=== PATIENT | female | born 1995 | race Caucasian/White ===

== ENCOUNTER 2019-12-03 21:51 | Observation (INO) | payer BC, SELFPAY ==
[2019-12-03 22:19] VITALS: BMI 27.2
--- NOTE | 2019-12-03 22:21 | OBADM ---
This patient, Yasemin Mota, admitted to the OB room OB Post 116 for observation. Patient/family oriented to hospital policies and general routines including ID bracelet, bed and alarms, visiting hours, pain management, procedures, bathroom and other care routines, personal items, smoking policy, room service/diet, and visiting hours. Patient/Family are encouraged to report perceived risks to care and to ask questions if they do not understand what they are told or what they should do.
[2019-12-03 22:59] VITALS: TEMP 36.4
[2019-12-03 23:00] VITALS: BP 113/65; PULSE 76
[2019-12-03] MEDS: LACTATED RINGERS 1,000 ML 125 ML IV CONT (23:19)
[2019-12-03 23:28] LABS: Basophils Percent Auto 0.2 % (0.2-1.2); Eosinophils Absolute Auto 0.1 K/mm3 (0-0.3); Eosinophils Percent Auto 0.7 % (0-4.4); Hematocrit 34.1 % (37.0-47.0); Hemoglobin 11.4 g/dL (12.0-15.0); Immature Granulocyte Absolute 0.03 K/mm3 (0.00-0.031); Immature Granulocyte Percent A 0.3 % (0-0.5); Lymphocytes Absolute Auto 2.28 K/mm3 (0.9-3.2); Lymphocytes Percent Auto 22.5 % (18.3-44.2); Mean Corpuscular HGB Conc 33.4 g/dl (32-36); Mean Corpuscular Volume 98.8 fl (80-100); Mean Platelet Volume 9.1 fl (7.4-10.4); Monocytes Absolute Auto 0.7 K/mm3 (0.1-0.6); Monocytes Percent Auto 7.1 % (2.6-8.5); Neutrophils Percent Auto 69.2 % (45.5-73.1); Platelet Count Result 177 k/mm3 (150-375); Red Blood Count 3.45 M/mm3 (4.2-5.4); Red Cell Distribution Width 13.4 % (11.5-14.5); White Blood Count 10.2 K/mm3 (4.5-10.0)
[2019-12-04] MEDS: LACTATED RINGERS 1,000 ML 125 ML IV CONT (00:17)
[2019-12-04 06:38] VITALS: BP 104/46; PULSE 69
[2019-12-04 09:10] LABS: Glucose 1 Hour PP 50gm Dose 115 mg/dL
[2019-12-04 10:13] LABS: HIV 1/2 Ab P24 Ag Result Negative (Negative)
--- NOTE | 2019-12-28 15:43 | P.PNOB_ITS ---
OB - Triage/Final Diagnosis Evaluation Laboratory results: Laboratory Tests 12/03/19 12/04/19 12/04/19 23:21 08:53 08:53 WBC 10.2 H RBC 3.45 L Hgb 11.4 L Hct 34.1 L MCV 98.8 MCH 33.0 MCHC 33.4 RDW 13.4 Plt Count 177 MPV 9.1 Immature Gran % (Auto) 0.3 Neut % (Auto) 69.2 Lymph % (Auto) 22.5 [place] % (Auto) 7.1 Eos % (Auto) 0.7 Baso % (Auto) 0.2 Lymph # (Auto) 2.28 [place] # (Auto) 0.7 H Eos # (Auto) 0.1 Baso # (Auto) 0.0 Abs Immat Gran (auto) 0.03 Absolute Neuts (auto) 7.0 H Absolute Nucleated RBC 0.0 Nucleated RBC % 0.0 Glucose 1 Hr 50 gm 115 HIV 1&2 Ab/P24 Ag 4thGn Negative Final Diagnosis (1) contractions: Code(s): O47.9 - False labor, unspecified Status: Acute
== END 2019-12-04 09:20 | disposition home or self-care (01) ==
PROVIDERS: Admitting Provider Obstetrics & Gynecology; Visit Provider Obstetrics & Gynecology
DX: O47.03 False labor before 37 completed weeks of gestation, third trimester (principal); Z3A.29 29 weeks gestation of pregnancy
CPT/HCPCS: 36415; 82947; 85025; 86703; 96360; 96361; G0378; G0379; G0432; J7120

== ENCOUNTER 2020-01-05 20:19 | Observation (INO) | payer BC, SELFPAY ==
[2020-01-05 20:41] VITALS: BP 121/73; PULSE 85
[2020-01-05 20:44] VITALS: BMI 28.1
--- NOTE | 2020-01-05 20:45 | OBADM ---
This patient, Yasemin Mota, admitted to the OB room OB Post 117 for observation. Patient/family oriented to hospital policies and general routines including ID bracelet, bed and alarms, visiting hours, pain management, procedures, bathroom and other care routines, personal items, smoking policy, room service/diet, and visiting hours. Patient/Family are encouraged to report perceived risks to care and to ask questions if they do not understand what they are told or what they should do.
[2020-01-05 20:58] VITALS: TEMP 36.9
[2020-01-05 21:01] VITALS: BP 116/76; PULSE 85
--- NOTE | 2020-01-10 08:49 | PM.OBTRLD ---
OB - Triage/Final Diagnosis Final Diagnosis (1) Blurry vision: Code(s): H53.8 - Other visual disturbances Status: Acute
== END 2020-01-05 21:15 | disposition home or self-care (01) ==
PROVIDERS: Admitting Provider Obstetrics & Gynecology; Visit Provider Obstetrics & Gynecology
DX: O99.89 Other specified diseases and conditions complicating pregnancy, childbirth and the puerperium (principal); H53.8 Other visual disturbances; Z3A.33 33 weeks gestation of pregnancy
CPT/HCPCS: G0378; G0379

== ENCOUNTER 2020-01-25 11:30 | Observation (INO) | payer BC, SELFPAY ==
--- NOTE | 2020-01-27 15:27 | PM.OBTRLD ---
OB - Triage/Final Diagnosis Final Diagnosis (1) False labor before 37 completed weeks of gestation: Qualifiers: Trimester: third trimester Qualified Code(s): O47.03 - False labor before 37 completed weeks of gestation, third trimester Code(s): O47.00 - False labor before 37 completed weeks of gestation, unspecified trimester Status: Acute Plan: heart tones were reassuring. Contractions spaced out and no cervical change was made. Patient was discharged home with PTL/bleeding/rupture precautions.
== END 2020-01-25 13:02 | disposition home or self-care (01) ==
PROVIDERS: Admitting Provider Obstetrics & Gynecology; Visit Provider Obstetrics & Gynecology
DX: O47.03 False labor before 37 completed weeks of gestation, third trimester (principal); Z3A.00 Weeks of gestation of pregnancy not specified
CPT/HCPCS: G0378; G0379

== ENCOUNTER 2020-02-08 07:16 | Inpatient (IN) | payer BC, SELFPAY ==
[2020-02-08] VITALS (198 sets, daily range): BP systolic 98–155; BP diastolic 48–138; PULSE 49–114; TEMP 36.4–37.3; O2SAT 85–100; BMI 29.2
[2020-02-08 08:54] LABS: Basophils Percent Auto 0.2 % (0.2-1.2); Eosinophils Absolute Auto 0.1 K/mm3 (0-0.3); Eosinophils Percent Auto 0.6 % (0-4.4); Hematocrit 38.3 % (37.0-47.0); Hemoglobin 13.3 g/dL (12.0-15.0); Immature Granulocyte Absolute 0.03 K/mm3 (0.00-0.031); Immature Granulocyte Percent A 0.3 % (0-0.5); Lymphocytes Percent Auto 16.6 % (18.3-44.2); Mean Corpuscular HGB Conc 34.7 g/dl (32-36); Mean Corpuscular Hemoglobin 33.4 pg (26-34); Mean Corpuscular Volume 96.2 fl (80-100); Mean Platelet Volume 9.6 fl (7.4-10.4); Monocytes Absolute Auto 0.5 K/mm3 (0.1-0.6); Monocytes Percent Auto 5.5 % (2.6-8.5); Neutrophils Absolute Auto 7.4 K/mm3 (1.3-6.7); Neutrophils Percent Auto 76.8 % (45.5-73.1); Platelet Count Result 197 k/mm3 (150-375); Red Blood Count 3.98 M/mm3 (4.2-5.4); Red Cell Distribution Width 13.3 % (11.5-14.5); White Blood Count 9.6 K/mm3 (4.5-10.0)
--- NOTE | 2020-02-08 09:13 | LDADM ---
This patient, Yasemin Mota, was admitted to Labor/Delivery/Recovery 106 on 02/08/20 at 07:16. Plans for labor, pain management and were discussed with patient. Patient/family oriented to hospital policies and general routines including ID bracelet, bed and alarms, visiting hours, pain management, procedures, bathroom and other care routines, personal items, smoking policy, room service/diet and guest tray routines, security routines, and visiting hours. Patient/Family are encouraged to report perceived risks to care and to ask questions if they do not understand what they are told or what they should do. See OBIX for further documentation.
[2020-02-08] MEDS: LACTATED RINGERS 1,000 ML 125 ML IV CONT ×3 (09:20→18:10)
[2020-02-08] MEDS: OXYTOCIN 30 UNITS/NS 500 ML 30 UNITS/500 ML BAG 6 UNITS IV CONT (09:21)
--- NOTE | 2020-02-08 10:36 | P.PNAN_ITS ---
Anes - Eval Pre Procedure Procedure: labor epidural Date/Time: 02/08/20 10:36 Surgeon: marce Preop Diagnosis: labor pain Pre Op Diagnosis: PREIN Patient Data Age: 24 Gender: F Height: 1.63 m Weight: 77.27 kg Last Vital Signs Temp 36.7 C 02/08/20 09:24 Pulse 69 02/08/20 10:15 BP 126/70 02/08/20 10:15 Allergies Allergy/AdvReac Type Severity Reaction Status Date / Time No Known Allergies Allergy Verified 12/03/19 12:39 Home Medications Medication Instructions Recorded Confirmed Type Classic 1 tablet PO DAILY 12/03/19 01/05/20 History famotidine [Pepcid] 20 mg PO BID PRN 12/03/19 01/05/20 History magnesium oxide 400 mg PO DAILY 12/03/19 01/05/20 History Laboratory Tests 02/08/20 02/08/20 08:35 08:35 WBC 9.6 K/mm3 K/mm3 (4.5-10.0) RBC 3.98 M/mm3 L M/mm3 (4.2-5.4) Hgb 13.3 g/dL g/dL (12.0-15.0) Hct 38.3 % % (37.0-47.0) MCV 96.2 fl fl (80-100) MCH 33.4 pg pg (26-34) MCHC 34.7 g/dl g/dl (32-36) RDW 13.3 % % (11.5-14.5) Plt Count 197 k/mm3 k/mm3 (150-375) MPV 9.6 fl fl (7.4-10.4) Immature Gran % (Auto) 0.3 % % (0-0.5) Neut % (Auto) 76.8 % H % (45.5-73.1) Lymph % (Auto) 16.6 % L % (18.3-44.2) [place] % (Auto) 5.5 % % (2.6-8.5) Eos % (Auto) 0.6 % % (0-4.4) Baso % (Auto) 0.2 % % (0.2-1.2) Lymph # (Auto) 1.60 K/mm3 K/mm3 (0.9-3.2) [place] # (Auto) 0.5 K/mm3 K/mm3 (0.1-0.6) Eos # (Auto) 0.1 K/mm3 K/mm3 (0-0.3) Baso # (Auto) 0.0 K/mm3 K/mm3 (0.0-0.1) Abs Immat Gran (auto) 0.03 K/mm3 K/mm3 (0.00-0.031) Absolute Neuts (auto) 7.4 K/mm3 H K/mm3 (1.3-6.7) Absolute Nucleated RBC 0.0 K/mm3 K/mm3 (0.0-0.012) Nucleated RBC % 0.0 % % (0.0-0.2) RPR Pending Patient hx anesthesia problems: none Family hx anesthesia problems: none [facility] Family History Family History (Updated 01/20/20 @ 15:44 by Shiv Quinones RN) Grandparent Diabetes mellitus Father Hypertension Social History Social History Smoking status: Never smoker Alcohol intake: current Substance use: never Gender identity (if verbalized by the patient): Female Spiritual care concerns: No Exam Day of Procedure 02/08/20 10:36 Patient weight: overweight Heart: regular rate and rhythm Lungs: clear to auscultation Airway: Mallampati scale class II Neurological: alert and oriented
[2020-02-08 11:09] LABS: Rapid Plasma Reagin Non-Reactive (NonReactive)
[2020-02-08] MEDS: SODIUM CHLORIDE 0.9% IV 300 ML 180 ML I-UTERINE (15:31)
--- NOTE | 2020-02-08 17:37 | PM.IMHP ---
H&P: HPI History of Present Illness Chief complaint: PREIN Narrative: Yasemin Mota is a 24 yo @ 38.4wks who presented with leakage of fluid starting at ~5-530am, clear in color. She reports her normal contractions/imtiaz augustin. Good movement, no bleeding. [facility] Family History Family History Grandparent Diabetes mellitus Father Hypertension Social History Social History Smoking status: Never smoker Alcohol intake: current Substance use: never Gender identity (if verbalized by the patient): Female Spiritual care concerns: No Comments PSH: larpascopic ovarian cystectomy Meds Home Medications and Allergies Home Medications Medication Instructions Recorded Confirmed Type Classic 1 tablet PO DAILY 12/03/19 02/08/20 History famotidine [Pepcid] 20 mg PO BID PRN 12/03/19 02/08/20 History magnesium oxide 400 mg PO DAILY 12/03/19 02/08/20 History Allergies Allergy/AdvReac Type Severity Reaction Status Date / Time No Known Allergies Allergy Verified 12/03/19 12:39 Vital Signs Vital Signs - 24 hr 02/08/20 08:00 02/08/20 08:15 02/08/20 08:30 Temperature Pulse Rate 73 79 95 Blood Pressure 132/80 130/89 125/80 Pulse Oximetry 02/08/20 08:45 02/08/20 09:00 02/08/20 09:15 Temperature Pulse Rate 85 84 66 Blood Pressure 130/79 131/83 123/74 Pulse Oximetry 02/08/20 09:24 02/08/20 09:30 02/08/20 09:45 Temperature 36.7 C Pulse Rate 76 62 Blood Pressure 109/73 126/79 Pulse Oximetry 02/08/20 10:00 02/08/20 10:15 02/08/20 12:03 Temperature Pulse Rate 75 69 60 Blood Pressure 125/78 126/70 127/79 Pulse Oximetry 02/08/20 12:15 02/08/20 12:30 02/08/20 12:39 Temperature 36.5 C Pulse Rate 54 L 57 L Blood Pressure 126/77 123/82 Pulse Oximetry 02/08/20 12:45 02/08/20 13:00 02/08/20 13:15 Temperature Pulse Rate 64 58 L 59 L Blood Pressure 122/78 124/81 118/81 Pulse Oximetry 02/08/20 13:30 02/08/20 13:45 02/08/20 13:47 Temperature Pulse Rate 49 L 61 56 L Blood Pressure 130/70 125/76 118/83 Pulse Oximetry 100 02/08/20 13:48 02/08/20 13:50 02/08/20 13:52 Temperature Pulse Rate 54 L 110 H 66 Blood Pressure 130/69 127/90 122/81 Pulse Oximetry 100 02/08/20 13:54 02/08/20 13:55 02/08/20 13:56 Temperature Pulse Rate 55 L 93 Blood Pressure 119/72 126/69 Pulse Oximetry 100 02/08/20 13:58 02/08/20 14:00 02/08/20 14:02 Temperature Pulse Rate 64 59 L 59 L Blood Pressure 128/82 122/69 119/73 Pulse Oximetry 100 02/08/20 14:04 02/08/20 14:05 02/08/20 14:06 Temperature Pulse Rate 61 61 Blood Pressure 121/63 116/66 Pulse Oximetry 100 02/08/20 14:08 02/08/20 14:10 02/08/20 14:11 Temperature Pulse Rate 66 75 Blood Pressure 110/62 118/62 Pulse Oximetry 100 02/08/20 14:12 02/08/20 14:14 02/08/20 14:15 Temperature 36.4 C L Pulse Rate 69 75 Blood Pressure 106/60 104/64 Pulse Oximetry 02/08/20 14:16 02/08/20 14:18 02/08/20 14:20 Temperature Pulse Rate 70 66 67 Blood Pressure 107/58 L 112/52 L 115/58 L Pulse Oximetry 100 02/08/20 14:21 02/08/20 14:22 02/08/20 14:24 Temperature Pulse Rate 69 82 Blood Pressure 109/64 104/48 L Pulse Oximetry 100 02/08/20 14:26 02/08/20 14:28 02/08/20 14:30 Temperature Pulse Rate 79 82 70 Blood Pressure 107/59 L 103/58 L 101/51 L Pulse Oximetry 100 02/08/20 14:31 02/08/20 14:32 02/08/20 14:34 Temperature Pulse Rate 60 67 Blood Pressure 100/53 L 100/53 L Pulse Oximetry 100 02/08/20 14:36 02/08/20 14:38 02/08/20 14:41 Temperature Pulse Rate 63 76 Blood Pressure 107/63 111/61 Pulse Oximetry 100 100 02/08/20 14:45 02/08/20 14:46 02/08/20 14:51 Temperature Pulse Rate 62 Blood Pressure 110/65 Pulse Oximetry 100 100 02/08/20 14:56 02/07
--- NOTE | 2020-02-08 17:37 | P.HP_ITS ---
Blood Pressure Pulse Oximetry 100 100 100 02/08/20 17:14 02/08/20 17:15 02/08/20 17:19 Temperature Pulse Rate 63 Blood Pressure 144/74 H Pulse Oximetry 100 100 02/08/20 17:24 02/08/20 17:29 02/08/20 17:30 Temperature Pulse Rate 59 L Blood Pressure 120/69 Pulse Oximetry 100 100 02/08/20 17:34 Temperature Pulse Rate Blood Pressure Pulse Oximetry 100 Exam Const: General: comfortable and no acute distress Resp: Effort & Inspection: normal respiratory effort Cardio: Rate: regular rate : Other: Membranes: ruptured, clear Cervix: Exam at 0730: FT/L/-3 Exam at 1230: 2/70/-3 Exam at 1730: 5-6/80/-2 FHT: 130's/mod brijesh/ + accels/ occasional mild variable decels - cat 2 but overall reassuring [place]: ctx's q 2-4min Pitocin started at 0930: currently at 4mU Neuro: Speech: normal speech Psych: Mental Status: mental status grossly normal Affect: normal affect H&P: Results Labs Labs: Short CBC 02/08/20 Range/Units 08:35 WBC 9.6 (4.5-10.0) K/mm3 Hgb 13.3 (12.0-15.0) g/dL Hct 38.3 (37.0-47.0) % Plt Count 197 (150-375) k/mm3 Assessment and Plan Additional Plan 24yo @ 38.4wks who presented with PROM - Admit to L&D - Will start pitocin augmentation-- continue per protocol to obtain contractions q2-3 min - GBS negative; ppx not indicated - Continuous FHT; variables were noted and IUPC was place for amnioinfusion @ ~ 1600 - Epidural/anesthesia consult PRN pain - Anticipated H&P: HPI History of Present Illness Chief complaint: PREIN Narrative: Yasemin Mota is a 24 yo @ 38.4wks who presented with leakage of fluid starting at ~5-530am, clear in color. She reports her normal contractions/imtiaz augustin. Good movement, no bleeding. [facility] Family History Family History Grandparent Diabetes mellitus Father Hypertension Social History Social History Smoking status: Never smoker Alcohol intake: current Substance use: never Gender identity (if verbalized by the patient): Female Spiritual care concerns: No Comments PSH: larpascopic ovarian cystectomy Meds Home Medications and Allergies Home Medications Medication Instructions Recorded Confirmed Type Classic 1 tablet PO DAILY 12/03/19 02/08/20 History famotidine [Pepcid] 20 mg PO BID PRN 12/03/19 02/08/20 History magnesium oxide 400 mg PO DAILY 12/03/19 02/08/20 History Allergies Allergy/AdvReac Type Severity Reaction Status Date / Time No Known Allergies Allergy Verified 12/03/19 12:39 Vital Signs Vital Signs - 24 hr 02/08/20 08:00 02/08/20 08:15 02/08/20 08:30 Temperature Pulse Rate 73 79 95 Blood Pressure 132/80 130/89 125/80 Pulse Oximetry 02/08/20 08:45 02/08/20 09:00 02/08/20 09:15 Temperature
--- NOTE | 2020-02-08 22:17 | PM.OBPRVD ---
OB - Delivery Note Procedure Delivery date: 02/08/20 Procedure: Yasemin progressed to complete dilation and began pushing with good maternal effort. She was noted to have variables and pushed from her left side. Right mediolateral episiotomy was cut due to decels and immediately allowed the head to deliver. The shoulders and body delivered without issues. She delivered a female infant (Sourav), weighing 7lb, 20inches long, apgars 8/9. The was immediately placed skin to skin and stimulated. The mouth and nose were bulb suctioned and the had spontaneous cry. The umbilical cord was clamped and cut. A segment of the cord was collected for cord gases. The placenta delivered with gentle traction with pitocin infusion running. Bimanual exam was performed and the uterus and lower uterine segment firmed up. The cervix, vagina, and perineum was inspected. The RML episiotomy was repaired in the normal fashion using 2-0 Vicryl suture and hemostasis was noted. The left labia was also noted to have a laceration and was repaired using one U-stitch using 3-0 Vicryl. Good hemostasis was noted and the fundus was firm. Sponge, lap, needle and instrument counts were correct at the end of the procedure. Mom and baby were left skin to skin in a stable condition in the birthing suite. events: Premature Rupture of Membrane Induction method: per pitocin protocol Delivery monitor: internal FHT and internal uterine Route of delivery: Episiotomy description: Right Mediolateral Laceration description: Labial (left ) Delivery repair: vicryl Specimen: No Estimated blood loss (mL): 350 Anesthesia type: Epidural Disposition: floor Baby Date of : 02/08/20 Time of : 21:52 Weeks of gestation at delivery: 38 gender: Female Weight (pounds): 7 Weight (ounces): 0 presentation: vertex Placenta delivery description: Expressed cord vessel description: 3 Vessels score one minute: 8 score five minutes: 9
[2020-02-08] MEDS: BENZOCAINE 20% AER SPR (*SP) 56 GM CAN 1 SPRAY TOPICAL (23:07)
[2020-02-08] MEDS: WITCH HAZEL 40 PADS 1 PAD TOPICAL (23:07)
[2020-02-08] MEDS: IBUPROFEN 600 MG TABLET PO (23:07)
[2020-02-09] VITALS: BP 117/69; PULSE 93
[2020-02-09 00:05] VITALS: TEMP 36.6
--- NOTE | 2020-02-09 00:12 | OBPPTRN ---
Patient transferred to post room #281 via wheelchair with in crib. Support person present. Oriented to unit, room, information board, rooming in, admission packet and security measures. Patient verbalizes understanding.
[2020-02-09 00:30] VITALS: BP 139/76; PULSE 61; RESP 18; TEMP 37.1
[2020-02-09] MEDS: HYDROCORTISONE ACETATE 25 MG SUPPOSITORY RECTAL (01:30)
[2020-02-09] MEDS: IBUPROFEN 600 MG TABLET PO ×3 (05:08→19:19)
[2020-02-09 05:21] LABS: Hematocrit 32.6 % (37.0-47.0); Hemoglobin 11.3 g/dL (12.0-15.0)
[2020-02-09 07:40] VITALS: BP 115/64; PULSE 69; RESP 18; TEMP 37.2; O2SAT 99
--- NOTE | 2020-02-09 09:43 | WPDANLDPN2 ---
Anes-Prog Note L&D Date/Time: 02/09/20 09:43 Comfortable throughout: labor and delivery Neuraxial method: epidural Epidural/Spinal procedure site: clean & non-tender Neuro status: Neuro function grossly intact. Cardiovascular status: normal Respiratory status: normal Airway patency: baseline Mental status: baseline Post-Op hydration status: normal Vital Signs: Last Vital Signs Temp 99 F 02/09/20 07:40 Pulse 69 02/09/20 07:40 Resp 18 02/09/20 07:40 BP 115/64 02/09/20 07:40 Pulse Ox 99 02/09/20 07:40 I/O: Intake & Output 02/08/20 02/09/20 02/09/20 23:59 07:59 15:59 Intake Total 1500 Output Total 350 150 Balance 1150 -150 Post-procedural complaints: none Patient feedback: Patient satisfied with anesthetic care.
--- NOTE | 2020-02-09 11:05 | PC.NURSE ---
Consulted with patient, mother reports infant is able to latch for most feedings and is sleepy at breast. Infant is sleepy, mother is attempting to wake to feed. Demonstrated stimulation techniques to wake infant for feeding. Assisted with infant to breast. Reviewed positioning/alignment in cross cradle, holding breast in U hold and guided asymmetrical latch on. Discussed rational for each. Infant was able to latch correctly, within a few attempts. nursed eagerly, with steady draws and frequent swallowing noted. Reviewed signs of a correct latch, effective nursing and suck swallow ratio. Infant was able to maintain latch without discomfort to mother. Suggested mother stimulate to keep infant awake and nursing effectively giving slight resistance with infant pulls back to assist maintaining deep latch. Reviewed infant feeding cues, frequencies, duration of feedings, feeding elimination flow sheet, signs of adequate intake and nipple care. Instructed mother to call out for RN assistance if she is unable to latch infant for feeding or she has discomfort with nursing. Instructed feeding should be initiated three hours from start of last feeding or if feeding cues are noted before. Mother voiced understanding of information shared.
[2020-02-09] MEDS: MULTIVIT/MIN/PREN/FOL AC/IRON TABLET 1 TAB PO (11:53)
--- NOTE | 2020-02-09 16:13 | P.PNOB_ITS ---
OB - PN: Subj Subjective Date/time seen: 02/09/20 12:10 Interval history: 24yo s/p on 02/07. Doing well, having cramping but pain medications are helping. Lochia decreasing. . Patient comments: no complaints, pain well controlled and tolerating diet baby status: doing well feeding status: exclusively breast feeding OB - PN: Obj Data Labs CBC & Chem 7: 02/09/20 04:53 Labs: Laboratory Results - last 24 hr 02/09/20 04:53 Hgb 11.3 L Hct 32.6 L OB - PN A/P Assessment and Plan (1) (normal spontaneous vaginal delivery): Code(s): O80 - Encounter for full-term uncomplicated delivery Status: Acute Assessment and Plan: Routine care Pain management Ambulate DC on 02/09 Time Spent With Patient Time: Total time spent is greater than 50% in coordination of care (as documented) at patient's floor/unit and/or counseling patient: Review of Systems Review of Systems: All systems reviewed & are unremarkable except as noted in HPI and below Exam Const: General: comfortable, alert and awake; No no acute distress Orientation/consciousness: patient oriented x3 Resp: Effort & Inspection: normal respiratory effort Cardio: Rate: regular rate GI: Other: soft, nontender, fundus firm Psych: Appearance: grossly normal Mental Status: mental status grossly normal Affect: normal affect Attitude: cooperative Judgement: Good kurt gement present (Psych)
[2020-02-09 19:23] VITALS: BP 127/73; PULSE 72; RESP 18; TEMP 36.9
[2020-02-10] MEDS: ACETAMINOPHEN 325 MG TABLET 650 MG PO (05:29)
[2020-02-10 07:10] VITALS: BP 123/79; PULSE 65; RESP 16; TEMP 36.9; O2SAT 97
--- NOTE | 2020-02-10 08:45 | PC.NURSE ---
Mother is able to independently latch infant with appropriate positioning/alignment. She has nipple discomfort, is feeding as required and waking to feed if needed. Assisted mother this feeding with deeper latch and how to adjust latch more deeply while feeding. has had 8 effective feedings in the past 24 hours, and is currently meeting outcomes for weight, output, jaundice and feeding frequencies. Mother states she feels confident to continue effective at home. Reviewed transition to breast milk, signs of adequate intake, and engorgement/relief. Instructed to call ICP if intake/output less than required. Reviewed regular medications mother is taking. Information provided per Dana. Reviewed community resources on the [facility] website and in the Mom/Baby guide. Information on outpatient services provided. Mother has no further questions at this time.
[2020-02-10] MEDS: MULTIVIT/MIN/PREN/FOL AC/IRON TABLET 1 TAB PO (09:14)
[2020-02-10] MEDS: IBUPROFEN 600 MG TABLET PO (09:14)
[2020-02-11 09:48] VITALS: BP 129/84; PULSE 72; RESP 16; TEMP 36.8
--- NOTE | 2020-02-18 09:28 | PM.OBDSVD ---
DS: Diagnosis Admitting Diagnosis Admitting Diagnosis: Encounter for supervision of normal , unspecified, third trimester Discharge Diagnosis (1) Rupture of membranes with clear amniotic fluid: Status: Acute OB - DS: Summary OB Procedures : None OB Procedures Intrapartum: Spontaneous Vag Delivery and Episiotomy OB Procedures: : None Peripartum Data Infant Delivery Method: Natural Vaginal Laceration description: Perineal - 2nd Degree Episiotomy description: Right Mediolateral complications: none [place] 1: Gender: Female Disposition of : home Status at Discharge Functional status at discharge: independent ambulation Overall status at discharge: patient is back to baseline Time Spent with Patient Time attestation: Total time spent providing and/or coordinating discharge services: Exam Const: General: comfortable and no acute distress Resp: Effort & Inspection: normal respiratory effort Cardio: Rate: regular rate GI: Inspection: non-distended GI Palp: Yes Soft to palpation and No Tenderness to palpation present (GI) : External Female Exam: external swelling Other: fundus firm below umbilicus, normal lochia Psych: Appearance: grossly normal Attitude: cooperative Discharge Plan Discharge Attending physician on discharge: Ira Saab Discharging Clinician: Ira Saab Anticipated Discharge Date/Time: 02/10/20 10:00 Patient Disposition: Home, Self-Care Activity: pelvic rest Diet: regular Discharge Instructions: Education: Mom and Baby Guide Given to: Mother Follow-Up: Call your delivering provider's office for an appointment to be seen in: Call MD office for appointment Mom and baby should come to the [facility] for the follow-up appointment. Appointment Date/Time: February 11, 2020 at 10:00 am What to expect at your follow-up visit: Physical Assessment Call [phone] if you are unable to keep your appointment time. BREAST CARE: 1. Wear a snug supportive bra. 2. For engorgement discomfort: Breast Feeding: A. Apply warm moist washcloths B. Express milk as needed to relieve engorgement C. Wear loose clothing 3. For sore nipples: A. Identify correct latch-on B. Apply warm moist washcloths before and after nursing C. Air dry nipples after nursing D. May apply Lansinoh cream to nipples PERINEAL CARE: 1. Until bleeding stops, use your sharon bottle after urinating 2. Change your pad frequently throughout the day 3. You may take sitz baths several times a day (fill your bathtub with warm water and soak for 20 minutes.) Do NOT bathe in the water 4. No tub baths until seen by your physician - You may shower ACTIVITY: 1. Rest as much as possible. 2. Do not exercise or lift anything heavier than your baby (such as laundry or other children.) 3. Avoid stairs or driving as much as possible. 4. Do not put anything into the vagina. No douching, tampons, or sexual activity until seen by physician. NOTIFY PHYSICIAN IF YOU HAVE ANY QUESTIONS OR IF ANY OF THE FOLLOWING SYMPTOMS OCCUR: 1. If your stitches become red, swollen, or more painful than what you have experienced in the hospital. 2. If your vaginal bleeding becomes foul smelling. 3. If your vaginal bleeding becomes more heavy than a period or if your bleeding changes from pink to bright red. However, you may pass an occasional walnut-sized clot once or twice for the first week . 4. If you experience a sharp, shooting pain in you calves. 5. If you discover a hard, reddened area on your breast or if you experience flu-like symptoms. DIET: 1. Eat regular, well-balanced meals. 2. Drink plenty of fluids daily. If , drink to thirst. Stand Alone Forms: General Discharge Information Follow-up/Referrals: Ira Saab MD [Physician] - Discharge Medications: New hydr
== END 2020-02-10 11:41 | disposition home or self-care (01) | DRG 807 ==
LOC: ANHLDR 08:38 → ANHOB2 02-09 00:14
PROVIDERS: Admitting Provider Obstetrics & Gynecology; Visit Provider Obstetrics & Gynecology
DX: O42.92 Full-term premature rupture of membranes, unspecified as to length of time between rupture and onset of labor (principal); Z37.0 Single live birth; Z3A.38 38 weeks gestation of pregnancy; O36.8330 Maternal care for abnormalities of the fetal heart rate or rhythm, third trimester, not applicable or unspecified
CPT/HCPCS: 36415; 85014; 85018; 85025; 86592; 86850; 86900; 86901; A9270; J2590; J2795; J3010; J3105; J7030; J7120

== ENCOUNTER 2021-03-13 13:31 | Outpatient (CLI) | payer BC, SELFPAY ==
--- NOTE | ~2021-03-13 | US_ITS ---
EXAMINATION: US breast LT limited HISTORY: Palpable lump of the left breast at the 12:00 location TECHNIQUE: Limited left breast ultrasound was performed. FINDINGS: There is no evidence of focal abnormal cystic or solid mass in the vicinity of the reported palpable abnormality of concern. IMPRESSION: No specific sonographic correlate is identified for the reported palpable abnormality of concern. Fur ther evaluation at this time should be based on clinical assessment. Continued follow-up physical exa mination is recommended. BI-RADS Category 1: Negative Reviewed, dictated and finalized at location A. IMPRESSION: No specific sonographic correlate is identified for the reported palpable abnor mality of concern. Further evaluation at this time should be based on clinical assessment. Continued follow-up physical examination is recommended. BI-RADS Category 1: Negative
== END 2021-03-13 13:32 | disposition home or self-care (01) ==
PROVIDERS: PCP Family Medicine; Visit Provider Nurse Practitioner Family
DX: N63.0 Unspecified lump in unspecified breast (principal)
CPT/HCPCS: 76642

== ENCOUNTER → 2021-04-06 08:18 | Outpatient (CLI) | payer BC, SELFPAY ==
--- NOTE | ~2021-04-06 | US_ITS ---
EXAMINATION: US breast LT limited HISTORY: Palpable lump in the upper outer quadrant of the left breast TECHNIQUE: Limited left breast ultrasound was performed. FINDINGS: There is a questionable 7 mm x 3 mm mass at the 1:00 location 9 cm from the nipple in the a idalia of palpable abnormality. On some of the provided cine clips, this area blends with surrounding fi broglandular tissue. IMPRESSION: Likely benign breast tissue corresponding to the palpable abnormality of concern. Recommend continue clinical examination and follow-up targeted left breast ultrasound in six months. BI-RADS category 3, probably benign findings. Reviewed, dictated and finalized at location A. IMPRESSION: Likely benign breast tissue corresponding to the palpable abnormality of concer n. Recommend continue clinical examination and follow-up targeted left breast u ltrasound in six months. BI-RADS category 3, probably benign findings.
== END ==
PROVIDERS: PCP Family Medicine; Visit Provider Nurse Practitioner Family
DX: N63.0 Unspecified lump in unspecified breast (principal); R92.8 Other abnormal and inconclusive findings on diagnostic imaging of breast
CPT/HCPCS: 76642

== ENCOUNTER → 2023-12-24 14:58 | Outpatient (CLI) | payer BC, SELFPAY ==
--- NOTE | ~2023-12-24 | US_ITS ---
EXAMINATION: US pelvic complete w TV DATE: 12/24/2023 15:27 INDICATION: Pelvic and perineal pain TECHNIQUE: Multiple transabdominal and endovaginal sonographic images of the pelvis were obtained. COMPARISON: None FINDINGS: The uterus measures 8.3 x 4.5 x 5.9 cm. The endometrial complex measures 11 mm in thickness. The rig ht ovary measures 2.6 x 1.7 x 2.3 cm. The left ovary is not visualized and was reportedly previously resected. Vascular flow identified in the right ovary on color Doppler. There is no free fluid in the pelvis. IMPRESSION: 1. Status post left oophorectomy. Otherwise normal pelvic ultrasound. Reviewed, dictated and finalized at location A. [facility]
== END ==
PROVIDERS: PCP Obstetrics & Gynecology; Visit Provider Obstetrics & Gynecology
DX: R10.2 Pelvic and perineal pain (principal); Z90.721 Acquired absence of ovaries, unilateral
CPT/HCPCS: 76830; 76856